=== PATIENT | male | born 1960 | race Hispanic/Latino ===

== ENCOUNTER 2022-07-26 08:42 | Observation (INO) | payer OTHER ==
[2022-07-20 13:21] LABS: BASOPHILS % (AUTO) 0.1 % (0.0-5.0); EOSINOPHILS % (AUTO) 0.8 % (0.0-8.0); HEMATOCRIT 40.9 % (42-54); LYMPHOCYTES % (AUTO) 28.2 % (21.0-51.0); MEAN CORPUSCULAR HEMOGLOBIN 31.7 pg (27.0-33.0); MEAN CORPUSCULAR HGB CONC 35.5 g/dL (32.0-36.0); MEAN CORPUSCULAR VOLUME 89.5 fL (79-99); MONOCYTES % (AUTO) 5.3 % (3.0-13.0); NEUTROPHILS % (AUTO) 65.4 % (40.0-77.0); PLATELET COUNT (AUTO) 253 K/uL (130-400); RED BLOOD CELL COUNT(AUTO) 4.57 MIL/uL (4.50-6.20); RED CELL DISTRIBUTION WIDTH 12.3 % (11.0-15.5); WHITE BLOOD COUNT (AUTO) 8.5 K/uL (4.8-10.8)
[2022-07-20 13:27] LABS: APPEARANCE,URINE SL CLOUDY (CLEAR); BILIRUBIN,URINE NEGATIVE (NEGATIVE); COLOR,URINE YELLOW (YELLOW); GLUCOSE, URINE (UA) NEGATIVE (NEGATIVE); KETONES,URINE NEGATIVE (NEGATIVE); LEUKOCYTE ESTERASE ,URINE LARGE Leu/uL (NEGATIVE); NITRATE,URINE POSITIVE (NEGATIVE); OCCULT BLOOD,URINE TRACE-INTACT (NEGATIVE); PH,URINE 7.5 (5.0-8.0); PROTEIN,URINE NEGATIVE (NEGATIVE); UROBILINOGEN,URINE 0.2 mg/dL (0.2-1.0)
[2022-07-20 13:29] LABS: CREATININE 0.8 mg/dL (0.5-1.5); POTASSIUM 3.8 mmol/L (3.5-5.1)
[2022-07-20 13:30] LABS: INR 0.94 (0.85-1.15); PROTHROMBIN TIME 10.3 SEC (9.6-11.6)
[2022-07-20 13:31] LABS: PARTIAL THROMBOPLASTIN TIME 28.2 SEC (26.3-35.5)
[2022-07-20 13:41] LABS: BACTERIA,URINE Moderate /HPF (None Seen); RBC,URINE 0-1 /HPF (0-1)
[2022-07-25 10:50] VITALS: BP 156/92
[2022-07-26] VITALS (21 sets, daily range): BP systolic 96–162; BP diastolic 62–86
[~2022-07-26] VITALS: Ht 167.6 cm; Wt 78.2 kg
[~2022-07-26 08:42] MED LIST: FISH1CAP50 PO; LISI20TA24 PO; MEROPENEM 1 GM VIAL IVP SCH; MULT-1367 PO
[2022-07-26] MEDS ORDERED: LACTATED RINGERS 1000ML 1,000 ML IV ONE (09:45)
[2022-07-26] MEDS ORDERED: FAMOTIDINE 20MG VIAL IV ONE (11:38)
[2022-07-26] MEDS ORDERED: DUTA0.5C37 PO (11:40)
[2022-07-26] MEDS ORDERED: TAMS-1 PO (11:40)
[2022-07-26] MEDS ORDERED: CEPH500C2 PO (11:40)
[2022-07-26] MEDS ORDERED: ATOR40TA71 PO (11:40)
[2022-07-26] MEDS ORDERED: MEROPENEM 1 GM VIAL IVP ONE (11:43)
[2022-07-26] MEDS ORDERED: PROPOFOL 10 MG/ML 20ML VIAL IV ONE (11:51)
[2022-07-26] MEDS ORDERED: ROCURONIUM 10MG/1ML SYR 10 MG/ML ML ONE (11:51)
[2022-07-26] MEDS ORDERED: GLYCOPYRROLATE 1 MG/5 ML SYRINGE ONE (11:51)
[2022-07-26] MEDS ORDERED: SUCCINYLCHOLINE 200MG/10ML SYR ONE (11:52)
[2022-07-26] MEDS ORDERED: FENTANYL CITRATE PF 50 MCG/1 ML 2ML VIAL ONE ×3 (11:52→13:28)
[2022-07-26] MEDS ORDERED: ONDANSETRON 4MG INJ ONE (12:39)
[2022-07-26] MEDS ORDERED: NEOSTIGMINE 5MG/5ML SYR IV ONE (13:43)
[2022-07-26 14:14] LABS: BASOPHILS % (AUTO) 0.1 % (0.0-5.0); EOSINOPHILS % (AUTO) 0.7 % (0.0-8.0); HEMATOCRIT 35.8 % (42-54); LYMPHOCYTES % (AUTO) 30.7 % (21.0-51.0); MEAN CORPUSCULAR HEMOGLOBIN 31.8 pg (27.0-33.0); MEAN CORPUSCULAR HGB CONC 36.3 g/dL (32.0-36.0); MEAN CORPUSCULAR VOLUME 87.5 fL (79-99); MONOCYTES % (AUTO) 7.3 % (3.0-13.0); NEUTROPHILS % (AUTO) 60.5 % (40.0-77.0); PLATELET COUNT (AUTO) 269 K/uL (130-400); RED BLOOD CELL COUNT(AUTO) 4.09 MIL/uL (4.50-6.20); RED CELL DISTRIBUTION WIDTH 12.5 % (11.0-15.5); WHITE BLOOD COUNT (AUTO) 6.8 K/uL (4.8-10.8)
[2022-07-26 14:22] LABS: CREATININE 0.9 mg/dL (0.5-1.5)
[2022-07-26] MEDS: HYDROCODONE/ACETAMINOPHEN 5/325 MG TAB PO PRN ×2 (18:21→22:21)
[2022-07-26] MEDS ORDERED: ONDANSETRON 4MG INJ IVP PRN (18:30)
[2022-07-26] MEDS ORDERED: HYDROMORPHONE 0.5 MG SYG (0.5MG/0.5ML) IVP PRN (18:30)
[2022-07-26] MEDS ORDERED: OPIUM/BELLADONNA ALKALOIDS 1 EACH SUPP.RECT RC PRN (18:30)
[2022-07-26] MEDS ORDERED: 0.9%NACL 1000ML 1,000 ML IV SCH (18:30)
[2022-07-26] MEDS: MEROPENEM 1 GM VIAL IVP SCH (20:34)
[2022-07-26] MEDS: DOCUSATE SODIUM 100 MG CAP PO SCH (20:49)
[2022-07-26] MEDS: BACITRACIN 1 EACH PACKET TP SCH (22:21)
[2022-07-27 03:47] VITALS: BP 97/56
[2022-07-27] MEDS: HYDROCODONE/ACETAMINOPHEN 5/325 MG TAB PO PRN ×2 (04:06→09:52)
[2022-07-27] MEDS: MEROPENEM 1 GM VIAL IVP SCH ×2 (04:06→12:06)
[2022-07-27 05:46] LABS: BASOPHILS % (AUTO) 0.1 % (0.0-5.0); EOSINOPHILS % (AUTO) 1.9 % (0.0-8.0); LYMPHOCYTES % (AUTO) 22.4 % (21.0-51.0); MEAN CORPUSCULAR HEMOGLOBIN 31.5 pg (27.0-33.0); MEAN CORPUSCULAR VOLUME 87.5 fL (79-99); MONOCYTES % (AUTO) 10.7 % (3.0-13.0); NEUTROPHILS % (AUTO) 64.4 % (40.0-77.0); PLATELET COUNT (AUTO) 303 K/uL (130-400); RED CELL DISTRIBUTION WIDTH 12.5 % (11.0-15.5); WHITE BLOOD COUNT (AUTO) 10.8 K/uL (4.8-10.8)
[2022-07-27 06:10] LABS: CREATININE 0.9 mg/dL (0.5-1.5); POTASSIUM 3.7 mmol/L (3.5-5.1)
[2022-07-27 08:00] VITALS: BP 110/60
[2022-07-27] MEDS: DOCUSATE SODIUM 100 MG CAP PO SCH (08:44)
[2022-07-27] MEDS: BACITRACIN 1 EACH PACKET TP SCH (09:00)
[2022-07-27] MEDS ORDERED: LISINOPRIL 20 MG TABLET PO SCH (09:00)
[2022-07-27 12:00] VITALS: BP 111/64
[2022-07-27 15:37] VITALS: BP 129/76
== END 2022-07-27 15:20 | disposition home or self-care (01) ==
LOC: DAH 08:42 → DAHIP 08:43 → DAH 08:43 → 3AH 15:23
PROVIDERS: ADMIT Urology; ATTEND Urology
DX: N40.1 Benign prostatic hyperplasia with lower urinary tract symptoms (principal); Z20.822 Contact with and (suspected) exposure to COVID-19; R33.8 Other retention of urine; I10 Essential (primary) hypertension; E78.5 Hyperlipidemia, unspecified; Z79.899 Other long term (current) drug therapy
CPT/HCPCS: 80048 ×3; 85025 ×3; 85610; 85730; 87077; 87088; 87186; 87426; 81001; 36415 ×3; 71045; 93005; 52601; 96374; 96375 ×2; 96365; G0378 ×25; A4663; J7030; A4346; A4354; J7120; J3490 ×2; J3010 ×3; J0330; J2710; J2704; J2405; J2185 ×7; A4358; A4930; A4215; A4223; A4222; A4221; A4600; J1170